=== PATIENT | male | born 1980 | race Caucasian/White ===

== ENCOUNTER 2024-03-27 06:26 | Day surgery (SDC) | payer OTHER, SELFPAY ==
[2024-03-27] VITALS (10 sets, daily range): BP systolic 103–119; BP diastolic 61–81; BMI 24.1
[2024-03-27] MEDS: NORMOSOL-R/PLASMALYTE-A 1000 IV (07:23)
[2024-03-27] MEDS: CELEBREX 200 MG PO (07:27)
[2024-03-27] MEDS: TYLENOL 1000 MG PO (07:28)
--- NOTE | 2024-03-27 07:48 | PTCARENOTE ---
Patient has a history of fainting with IV's but did not faint during IV insertion. Passed on to the OR team and also [facility]. Patient sent for a block this am.
--- NOTE | 2024-03-27 10:42 | SUR.PHASEI ---
Dr Mcfadden advised positive Vikram's sign and visits, Dr Mcfadden again reviewed symptoms and explained Vikram's sign to patient. Patient is comfortable with stable vital signs
--- NOTE | 2024-03-27 10:48 | SUR.PHASEI ---
comfortable, ready for sds, taking ice chips po -
== END 2024-03-27 11:56 | disposition home or self-care (01) ==
LOC: SDS 06:26
PROVIDERS: ATTENDING PHYSICIAN Orthopaedic Surgery Hand Surgery
DX: M25.332 Other instability, left wrist (principal)
CPT/HCPCS: 25320; C1713

== ENCOUNTER → 2024-12-11 10:13 | Outpatient (REF) | payer OTHER, SELFPAY | LOC: EMG 10:13 | PROVIDERS: ATTENDING PHYSICIAN Orthopaedic Surgery Hand Surgery; FAMILY PHYSICIAN Family Medicine | DX: S63.502D Unspecified sprain of left wrist, subsequent encounter (principal); R20.0 Anesthesia of skin | CPT/HCPCS: 95886; 95909 ==